=== PATIENT | male | born 1955 | race Two or more races ===

== ENCOUNTER 2017-12-14 08:26 | Emergency (ER) | payer OTHER ==
[~2017-12-14] VITALS: Ht 175.3 cm; Wt 90.7 kg
[2017-12-14] MEDS ORDERED: MEDROLPACK PO (11:26)
[2017-12-14] MEDS ORDERED: NORFLEX100MG PO (11:26)
[2017-12-14] MEDS ORDERED: KETO10TA2 PO (11:26)
== END 2017-12-14 11:32 | disposition home or self-care (01) ==
LOC: ER 08:26
DX: M25.511 Pain in right shoulder (principal)